=== PATIENT | female | born 1995 | race Caucasian/White ===

== ENCOUNTER 2023-10-29 17:16 | Emergency (ER) | payer MEDICAID, SELFPAY ==
[2023-10-29 17:22] VITALS: BP 137/91; PULSE 95; RESP 16; TEMP 37.1; O2SAT 99; BMI 38.7
--- NOTE | 2023-10-29 17:27 | ED.GENADUL1 ---
HPI - General Adult General Chief complaint: Headache Stated complaint: MIGRAINE Time Seen by Provider: 10/29/23 17:20 Source: patient Mode of arrival: walk-in History of Present Illness HPI narrative: 28-year-old female presents for a one-month history of a headache. It's the entire head and her neck that have been hurting. No trauma or fever. She has been on multiple prescription medications which have not helped. She's been taking gmuq-nen-uofsvhb medications at home as well. No localized weakness or numbness to her extremities. She has not had a CAT scan. She does not frequently get headaches. It is keeping her awake at night. Related Data Home Medications Medication Instructions Recorded Confirmed cyclobenzaprine 10 mg tablet 10 mg PO QPM PRN headache 10/29/23 10/29/23 Previous Rx's Medication Instructions Recorded rfhatmfhnh-tuvkyzcekwzlo-wdozpray 1 cap PO Q6H PRN pain 5 days #20 10/29/23 50 mg-300 mg-40 mg capsule caps (Fioricet) methocarbamol 500 mg tablet 500 mg PO Q8H PRN pain #20 tabs 10/29/23 Allergies Allergy/AdvReac Type Severity Reaction Status Date / Time sumatriptan Allergy Severe Verified 10/29/23 17:21 Review of Systems ROS Narrative A ten point review of systems is negative except as noted above. Exam Narrative Exam Narrative: Nurses note and vital signs reviewed and patient is not hypoxic. General: The patient appears well and in no apparent distress. Patient is resting comfortably on cart. Skin: Warm, dry, no pallor noted. There is no rash noted. Head: Normocephalic, atraumatic, neck supple, no nuchal rigidity Eye: Normal conjunctiva, no drainage, EOMI. Ears, Nose, Mouth, and Throat: oral mucosa is moist. Nares patent. Cardiovascular: Regular Rate and Rhythm Respiratory: Patient is in no distress, no accessory muscle use, lungs are clear to auscultation, no wheezing, rales or rhonchi Back: non-tender GI: soft and nontender Musculoskeletal: The patient has no evidence of calf tenderness, no pitting edema, symmetrical pulses noted bilaterally Neurological: A&O x4, normal speech; upper and lower extremity strength five out five and symmetric Psychiatric: Cooperative Constitutional Vital Signs, click to edit/add: Last Vital Signs Temp 98.8 F 10/29/23 17:22 Pulse 95 H 10/29/23 17:22 Resp 16 10/29/23 17:22 BP 137/91 10/29/23 17:22 Pulse Ox 99 10/29/23 17:22 O2 Del Method Room Air 10/29/23 17:22 Course Vital Signs Vital signs: Vital Signs Temperature 98.8 F 10/29/23 17:22 Pulse Rate 95 H 10/29/23 17:22 Respiratory Rate 16 10/29/23 17:22 Blood Pressure 137/91 10/29/23 17:22 Pulse Oximetry 99 10/29/23 17:22 Oxygen Delivery Method Room Air 10/29/23 17:22 Temperature 98.8 F 10/29/23 17:22 Pulse Rate 95 H 10/29/23 17:22 Respiratory Rate 16 10/29/23 17:22 Blood Pressure 137/91 10/29/23 17:22 Pulse Oximetry 99 10/29/23 17:22 Oxygen Delivery Method Room Air 10/29/23 17:22 Medical Decision Making MDM Narrative Medical decision making narrative: her workup including CT brain and C-spine do not show any acute findings. The mucosal changes in the sphenoid sinus appear to be chronic. She'll be treated symptomatically and is being scheduled to see a neurologist. Treatment diagnosis and follow-up were discussed with the patient. I've no clinical suspicion of meningitis. Differential Diagnosis Differential Diagnosis: nonspecific headache, intracranial hemorrhage, tension headache Lab Data Lab results reviewed: Yes I reviewed the patient's lab results Labs: Lab Results 10/29/23 Range/Units 17:55 WBC 7.5 (4.0-11.0) 10^3/uL RBC 4.54 (4.20-5.40) 10^6/uL Hgb 13.5 (12.0-16.0) g/dL Hct 39.8 (36.0-48.0) % MCV 87.7 (81.0-99.0) fL MCH 29.7 (26.7-34.0) pg MCHC 33.9 (29.9-35.2) g/dL RDW 12.0 (11.0-15.0) % Plt Count 286 (150-450) 10^3/uL MPV 9.8 (9.5-13.5) fL Neut % (Auto) 54.2 (43.0-75.0) % Lymph % (Auto) 31.0 (20.5-60.0) % [place] % (Auto) 12.8 H (1.7-12.0) % Eos % (Auto) 1.2 (0.9-7.0) % Baso % (Auto) 0.7 (0.2-2.0) % Neut # (Auto) 4.1 (1.4-6.5) 10^3/uL Lymph # (Auto) 2.3 (1.2-3.8) 10^3/uL [place] # (Auto) 1.0 H (0.3-0.8) 10^3/uL Eos # (Auto) 0.1 (0.0-0.7) 10^3/uL Baso # (Auto) 0.1 (0.0-0.1) 10^3/uL Abs Immat Gran (auto) 0.01 (0.00-0.03) 10^3/uL Imm/Tot Granulo (auto) 0.1 (0.0-0.5) % Sodium 137 (136-145) mmol/L Potassium 4.2 (3.5-5.1) mmol/L Chloride 102 (98-107) mmol/L Carbon Dioxide 28.2 (21.0-32.0) mmol/L Anion Gap 11.0 BUN 13.0 (7.0-18.0) mg/dL Creatinine 0.80 (0.55-1.02) mg/dL Est GFR ( Amer) >60 (>=60) Est GFR (Non-Af Amer) >60 (>=60) BUN/Creatinine Ratio 16.2 Glucose 95 (74-106) mg/dL Calcium 9.6 (8.5-10.1) mg/dL Serum HCG, Qual Negative (NEGATIVE) Imaging Data CT scan - head: Radiologist's impression: ITS Impressions Cervical Spine CT 10/29/23 18:07 IMPRESSION: No acute findings of the cervical spine. Mildly enlarged cervical lymph nodes, most often reactive. Clinical follow-up recommended. Electronically authenticated by: FILIBERTO MELENDEZ Date: 10/29/2023 18:[address] 10/29/23 18:07 IMPRESSION: There is no evidence of an intracranial hemorrhage, mass lesion or apparent acute infarct. A cluster of very faint punctate calcifications are seen in the basal ganglia, of questionable clinical significance. Mild chronic mucosal changes are seen in the sphenoid sinus on the right, and the paranasal sinuses are otherwise clear as visualized. The mastoid sinuses are clear. There is no apparent acute skull fracture. Comparison with a previous study would be helpful in determining the chronicity of these findings. Electronically authenticated by: DEBORAH DE LA TORRE Date: 10/29/2023 18:24 Discharge Plan Discharge Chief Complaint: Headache Clinical Impression: Headache Patient Disposition: Home, Self-Care Time of Disposition Decision: 18:44 Condition: Good Mode of Transportation: Private Vehicle Prescriptions / Home Meds: New methocarbamol 500 mg tablet 500 mg PO Q8H PRN (Reason: pain) Qty: 20 0RF dpnawjodko-dhelfxkjyxilu-ymha [Fioricet] 50-300-40 mg capsule 1 cap PO Q6H PRN (Reason: pain) 5 Days Qty: 20 0RF No Action cyclobenzaprine 10 mg tablet 10 mg PO QPM PRN (Reason: headache) Instructions: Acute Headache (ED) Stand Alone Forms: Portal Instructions Referrals: Physician,Non-Staff, MD [Primary Care Provider] - 1 week
[2023-10-29 18:03] LABS: Basophils Absolute Auto 0.1 10^3/uL (0.0-0.1); Basophils Percent Auto 0.7 % (0.2-2.0); Eosinophils Absolute Auto 0.1 10^3/uL (0.0-0.7); Eosinophils Percent Auto 1.2 % (0.9-7.0); Hematocrit 39.8 % (36.0-48.0); Hemoglobin 13.5 g/dL (12.0-16.0); Immature Granulocytes Abs Auto 0.01 10^3/uL (0.00-0.03); Immature Granulocytes Pct Auto 0.1 % (0.0-0.5); Lymphocytes Absolute Auto 2.3 10^3/uL (1.2-3.8); Mean Corpuscular HGB Conc 33.9 g/dL (29.9-35.2); Mean Corpuscular Hemoglobin 29.7 pg (26.7-34.0); Mean Corpuscular Volume 87.7 fL (81.0-99.0); Mean Platelet Volume 9.8 fL (9.5-13.5); Monocytes Percent Auto 12.8 % (1.7-12.0); Neutrophils Absolute Auto 4.1 10^3/uL (1.4-6.5); Neutrophils Percent Auto 54.2 % (43.0-75.0); Platelet Count 286 10^3/uL (150-450); Red Blood Count 4.54 10^6/uL (4.20-5.40); White Blood Count 7.5 10^3/uL (4.0-11.0)
--- NOTE | 2023-10-29 18:07 | CT_ITS ---
[place] [id number] Patient Name: JAMAAL LIRA MRN: [id number] date: 1995 Sex: F Assigned Patient Location: ER Current Patient Location: [facility] Accession/Order Number: [id number] Exam Date: 10/29/2023 18:02 Report Date: 10/29/2023 18:38 At the request of: SANDRITA ANDRADE Procedure: CT cervical spine wo con EXAM: CT cervical spine wo con HISTORY: atraumatic pain COMPARISON: None. TECHNIQUE: CT cervical spine without contrast. Multiplanar reformats obtained. The current study utilizes one or more of the following dose-reduction techniques: automated exposure control, iterative reconstruction, and/or manual adjustment of tube current and voltage for size. FINDINGS: No acute fracture or traumatic malalignment. Spinal canal grossly patent. No prevertebral edema. No significant degenerative changes. Neural foramen grossly patent. Mildly enlarged left greater than right cervical lymph nodes. CT/CT cervical spine wo con IMPRESSION: No acute findings of the cervical spine. Mildly enlarged cervical lymph nodes, most often reactive. Clinical follow-up recommended. Electronically authenticated by: FILIBERTO MELENDEZ Date: 10/29/2023 18:38
--- NOTE | 2023-10-29 18:07 | CT_ITS ---
The [address] [address] Patient Name: JAMAAL LIRA MRN: [id number] date: 1995 Sex: F Assigned Patient Location: ER Current Patient Location: ER Accession/Order Number: [id number] Exam Date: 10/29/2023 18:02 Report Date: 10/29/2023 18:24 At the request of: SANDRITA ANDRADE Procedure: CT head/brain wo con EXAM: CT head/brain wo con HISTORY: MALIN and neck pain, recurrent for the past month. COMPARISON: None. TECHNIQUE: Multiple thin computed tomograms of the head were obtained, with sagittal and coronal reconstructions. FINDINGS: The ventricles are not enlarged, the lateral ventricles are relatively symmetric and the third ventricles in the midline. The sylvian fissures and cortical sulci are unremarkable. There is no evidence of an intracranial hemorrhage, mass lesion or apparent acute infarct. Very faint punctate calcifications are suggested in the basal ganglia bilaterally. The cerebellum and visualized brainstem are intact. Mucosal thickening is seen in the sphenoid sinuses eccentric to the right of the midline, and the paranasal sinuses are otherwise clear. The middle ears are aerated. The mastoid sinuses are clear. There is no apparent acute skull fracture. CT/CT head/brain wo con IMPRESSION: There is no evidence of an intracranial hemorrhage, mass lesion or apparent acute infarct. A cluster of very faint punctate calcifications are seen in the basal ganglia, of questionable clinical significance. Mild chronic mucosal changes are seen in the sphenoid sinus on the right, and the paranasal sinuses are otherwise clear as visualized. The mastoid sinuses are clear. There is no apparent acute skull fracture. Comparison with a previous study would be helpful in determining the chronicity of these findings. Electronically authenticated by: DEBORAH DE LA TORRE Date: 10/29/2023 18:24
[2023-10-29 18:11] LABS: BUN Creatinine Ratio 16.2; Calcium 9.6 mg/dL (8.5-10.1); Carbon Dioxide 28.2 mmol/L (21.0-32.0); Chloride 102 mmol/L (98-107); Estimated GFR (African America >60 (>=60); Estimated GFR (Non-African Ame >60 (>=60); Glucose 95 mg/dL (74-106); Potassium 4.2 mmol/L (3.5-5.1); Sodium 137 mmol/L (136-145)
[2023-10-29 18:17] LABS: HCG Qualitative NEGATIVE (NEGATIVE)
[2023-10-29] MEDS: KETOROLAC TROMETHAMINE 30 MG/ML VIAL IVP (18:29)
[2023-10-29] MEDS: METHYLPREDNISOLONE SOD SUCC PF 125 MG/2 ML VIAL IVP (18:29)
== END 2023-10-29 18:59 | disposition home or self-care (01) ==
PROVIDERS: Emergency Provider Emergency Medicine
DX: R51.9 Headache, unspecified (principal); Z79.899 Other long term (current) drug therapy
CPT/HCPCS: 36415; 70450; 72125; 80048; 84703; 85025; 96374; 96375; 99285; J1885; J2930

== ENCOUNTER 2023-11-25 18:02 | Emergency (ER) | payer MEDICAID, SELFPAY ==
[2023-11-25 18:06] VITALS: BP 157/89; PULSE 96; RESP 20; TEMP 36.8; O2SAT 100; BMI 38.1
--- OUTSIDE RECORDS SUMMARY | 2023-11-25 18:06 | XMS_ITS | CCD ---
Author Name Unknown Address [address] [place] [address] Organization [facility] Care Team Providers Care Hand Stitcher Name Role Phone CASH FERNANDEZ Unavailable Unavailable CASH FERNANDEZ Unavailable Unavailable JOHN NIELSON Unavailable Unavailable CASH FERNANDEZ Unavailable Unavailable Problems Problem Classification Problem Date Documented Da te Episodic/Chronic Menstrual disorders (4 sources) Excessive and frequent menstruation with irregular cycle; Translations: [EXCESS AND FREQ MEN W/IRREG CYCLE] Onset: 05-06-2017 Chronic Results Test Name Value Interpretation Reference Range Facil ity US PELVIS AND TRANSVAGon US PELVIS AND TRANSVAG [address] [place] [address] Patient: JAMAAL LIRA. Exam Date: 05/06/2017DOB: 1995 Gender:F : CASH FERNANDEZ . Admission #: [id number] : Order #: [id number] HERE TO VIEW EXAM RADIOLOGY REPORT PROCEDURE: ULTRASOUND PELVIS AND TRANSVAGINAL COMPARISON: None. INDICATIONS: Breakthrough bleeding on Nexplanon N92.1; acute bilateral pelvic pain TECHNIQUE: Transabdominal sonographic examination. Transvaginal sonographic examination.FINDINGS: UTERUS: Normal size and appearance. Uterus: 9.2 x 6.0 x 5.7 cm (165 cc)ENDOMETRIUM: Normal homogeneous appearance. Endometrial thickness: 8.2 mm RIGHT OVARY: Normal size and appearance. Multiple follicles less than 10 mm. Blood flow present within ovary on color Doppler. Right ovary: 4.3 x 3.1 x 2.0 cm (14 cc) LEFT OVARY: Normal size and appearance. Multiple follicles less than 10 mm. Blood flow is present within ovary on Color Doppler. Left ovary: 4.2 x 2.5 x 2.4 cm (13 cc) CUL-DE-SAC: Small amount of free fluid.BLADDER: Unremarkable.OTHER: None. CONCLUSION: 1. Normal appearing uterus and endometrium.2. Normal appearing ovaries, each containing multiple small follicles. Dictated by: John Nielson M.D. on 05/06/2017 at 13:07 Approved by: John Nielson M.D. on 05/06/2017 at 13:10 Normal [facility] Encounters Encounter Date Encounter Type Care Provider Facility Start: 05-06-2017 End: 05-07-2017 Ambulatory CASH FERNANDEZ Facility: Payers Date Payer Category Payer Unknown [id number] Summary Purpose Family History No Family History Records Found Advance Directives No Advanced Directives Records Found Additional Source Comments INFORMATION SOURCE (unrecogn ized section and content) DATE CREATED AUTHOR 04/14/[address] [facility] FOR RECORDS PERTAINING TO PATIENTS WHO ARE OR HAVE BEEN ENROLLED IN A CHEMICAL DEPENDENCY/SUBSTANCEABUSE PROGRAM, SOME INFORMATION MAY BE OMITTED. This clinical summary was aggregated from multiple sources. Caution should be exercised in using it in the provision of clinical care. This summary normalizes information from multiple sources, and as a consequence, information in this document may materially change the coding, format and clinical context of patient data. In addition, data may be omitted in some cases. CLINICAL DECISIONS SHOULD BE BASED ON THE PRIMARY CLINICAL RECORDS. [employer] provides no warranty or guarantee of the accuracy or completeness of information in this document.
[2023-11-25 18:37] LABS: Influenza Virus A Antigen Negative; Influenza Virus B Antigen Negative; Internal Control Within Normal Limits; SARS-CoV-2 Ag NEGATIVE (NEGATIVE); Strep A Antigen Screen Negative
--- NOTE | 2023-11-25 19:17 | XR_ITS ---
The [address] [address] Patient Name: JAMAAL LIRA MRN: [id number] date: 1995 Sex: F Assigned Patient Location: ER Current Patient Location: ER Accession/Order Number: [id number] Exam Date: 11/25/2023 19:25 Report Date: 11/25/2023 19:40 At the request of: RILEY MARKER Procedure: XR chest 2V EXAM: XR chest 2V TECHNIQUE: PA and lateral view of the chest HISTORY: SOB COMPARISON: None. FINDINGS: The heart and mediastinum are unremarkable. The lung sommer are clear of any acute infiltrate, effusion or mass. No acute bony abnormality. XR/XR chest 2V IMPRESSION: No acute pulmonary disease. Electronically authenticated by: SUKHDEEP BENÍTEZ Date: 11/25/2023 19:40
--- NOTE | 2023-11-25 19:17 | ED.URI1 ---
HPI - URI/Sore Throat General Chief Complaint: Upper Respiratory Infection Stated Complaint: FLU Time Seen by Provider: 11/25/23 19:09 Source: patient History of Present Illness HPI Narrative: 28-year-old female presents for evaluation of 2 days of chills, headaches, nausea and diarrhea. She has a cough with productive phlegm. She states she had cold symptoms last week and thought that the phlegm was related to that. She denies possibility of because she has an IUD. She denies any luis chest pain dizziness or syncope. She states when she was bending over at work she had to have her boss help her because she became so nauseated. She has no flank pain. She has been using orkw-ych-dpmgyht [place] without significant improvement. Related Data Home Medications Medication Instructions Recorded Confirmed cyclobenzaprine 10 mg tablet 10 mg PO QPM PRN headache 10/29/23 10/29/23 Previous Rx's Medication Instructions Recorded pipaqvhfuf-idcjoxyrorsmt-wmbrbepy 1 cap PO Q6H PRN pain 5 days #20 10/29/23 50 mg-300 mg-40 mg capsule caps (Fioricet) methocarbamol 500 mg tablet 500 mg PO Q8H PRN pain #20 tabs 10/29/23 Allergies Allergy/AdvReac Type Severity Reaction Status Date / Time sumatriptan Allergy Severe Verified 10/29/23 17:21 Review of Systems ROS Status of ROS 10 or more systems reviewed and unremarkable except as noted in history and below PFSH PFS Social History Smoking status: Never smoker Exam Narrative Exam Narrative: Nurses note and vital signs reviewed and patient is not hypoxic. Blood pressure was noted to be elevated at 157/89 General: The patient appears well and in no apparent distress. Patient is resting comfortably on cart. She is speaking in complete sentences Skin: Warm, dry, no pallor noted. There is no rash noted. Head: Normocephalic, atraumatic Eye: Normal conjunctiva, no drainage, EOMI. PERRL Ears, Nose, Mouth, and Throat: oral mucosa is moist. Nares patent. Mouth without vesicles. Cardiovascular: Regular Rate and Rhythm, No murmurs rubs or gallops appreciated Respiratory: Patient is in no distress, no accessory muscle use, lungs are clear to auscultation, no wheezing, rales or rhonchi Back: non-tender, no CVA tenderness bilaterally to percussion. GI: Normal bowel sounds, no tenderness to palpation, no masses appreciated. No rebound, guarding, or rigidity noted. Musculoskeletal: The patient has no evidence of calf tenderness, no pitting edema, symmetrical pulses noted bilaterally Neurological: A&O x4, normal speech Psychiatric: Cooperative Constitutional Vital Signs, click to edit/add: Last Vital Signs Temp 98.3 F 11/25/23 18:06 Pulse 96 H 11/25/23 18:06 Resp 20 11/25/23 18:06 BP 157/89 H 11/25/23 18:06 Pulse Ox 98 11/25/23 19:33 O2 Del Method Room Air 11/25/23 19:33 Course Vital Signs Vital signs: Vital Signs Temperature 98.3 F 11/25/23 18:06 Pulse Rate 96 H 11/25/23 18:06 Respiratory Rate 20 11/25/23 18:06 Blood Pressure 157/89 H 11/25/23 18:06 Pulse Oximetry 100 11/25/23 18:06 Oxygen Delivery Method Room Air 11/25/23 18:06 Temperature 98.3 F 11/25/23 18:06 Pulse Rate 96 H 11/25/23 18:06 Respiratory Rate 20 11/25/23 18:06 Blood Pressure 157/89 H 11/25/23 18:06 Pulse Oximetry 98 11/25/23 19:33 Oxygen Delivery Method Room Air 11/25/23 19:33 MDM - URI/Sore Throat MDM Narrative Medical decision making narrative: This 28-year-old female presents for evaluation of 2 days of cough with productive phlegm, nausea, diarrhea and intermittent abdominal cramps and chills. She is negative for COVID 19, influenza and strep. Her physical exam is benign. Her lungs are clear. Abdomen is soft. She is medicated emergency department with Tylenol and Zofran.X-ray of the chest was reviewed by radiology and is negative for acute findings. The symptoms are likely viral in nature.. She will be discharged home with prescription for Zofran and Bromfed-DM to use as needed for her cough and chest congestion as well as nausea. Lab Data Labs: Lab Results 11/25/23 Range/Units 18:08 Influenza Type A Ag Negative Influenza Type B Ag Negative SARS-CoV-2 Ag (CV2AG) Negative (NEGATIVE) Streptococcus Screen Negative Discharge Plan Discharge Chief Complaint: Upper Respiratory Infection Clinical Impression: Viral infection Patient Disposition: Home, Self-Care Time of Disposition Decision: 19:57 Condition: Good Prescriptions / Home Meds: No Action cyclobenzaprine 10 mg tablet 10 mg PO QPM PRN (Reason: headache) methocarbamol 500 mg tablet 500 mg PO Q8H PRN (Reason: pain) Qty: 20 0RF dpsrpgszdj-xlhwxyckuevdu-pqmn [Fioricet] 50-300-40 mg capsule 1 cap PO Q6H PRN (Reason: pain) 5 Days Qty: 20 0RF Instructions: Viral Syndrome (ED) Stand Alone Forms: Portal Instructions Referrals: Physician,Non-Staff, MD [Primary Care Provider] - 1 week
[2023-11-25 19:33] VITALS: O2SAT 98
[2023-11-25] MEDS: ACETAMINOPHEN 325 MG TABLET 650 MG PO (19:42)
[2023-11-25] MEDS: ONDANSETRON 4 MG RAPDIS TABLET SL (19:42)
== END 2023-11-25 20:19 | disposition home or self-care (01) ==
PROVIDERS: Emergency Medicine; Emergency Provider Emergency Medicine
DX: B34.9 Viral infection, unspecified (principal); Z97.5 Presence of (intrauterine) contraceptive device; Z20.822 Contact with and (suspected) exposure to COVID-19
CPT/HCPCS: 71046; 87070; 87804; 87811; 87880; 99285; Q0162

== ENCOUNTER 2023-12-17 14:02 | Outpatient (OUT) | payer MEDICAID, SELFPAY ==
[2023-12-17 14:37] LABS: Basophils Percent Auto 0.2 % (0.2-2.0); Calcium 9.3 mg/dL (8.5-10.1); Eosinophils Percent Auto 0.2 % (0.9-7.0); Estimated GFR (African America >60 (>=60); Estimated GFR (Non-African Ame >60 (>=60); Hematocrit 38.4 % (36.0-48.0); Hemoglobin 12.9 g/dL (12.0-16.0); Immature Granulocytes Abs Auto 0.03 10^3/uL (0.00-0.03); Immature Granulocytes Pct Auto 0.3 % (0.0-0.5); Lymphocytes Absolute Auto 1.2 10^3/uL (1.2-3.8); Lymphocytes Percent Auto 9.9 % (20.5-60.0); Magnesium 1.9 mg/dL (1.8-2.4); Mean Corpuscular HGB Conc 33.6 g/dL (29.9-35.2); Mean Corpuscular Hemoglobin 29.7 pg (26.7-34.0); Mean Corpuscular Volume 88.3 fL (81.0-99.0); Mean Platelet Volume 11.2 fL (9.5-13.5); Monocytes Absolute Auto 0.3 10^3/uL (0.3-0.8); Monocytes Percent Auto 2.3 % (1.7-12.0); Neutrophils Absolute Auto 10.1 10^3/uL (1.4-6.5); Neutrophils Percent Auto 87.1 % (43.0-75.0); Phosphorus 2.4 mg/dL (2.6-4.7); Platelet Count 251 10^3/uL (150-450); Red Blood Count 4.35 10^6/uL (4.20-5.40); Red Cell Distribution Width 12.3 % (11.0-15.0); White Blood Count 11.6 10^3/uL (4.0-11.0)
[2023-12-17 15:28] LABS: Percent Iron Saturation 25.7 %
[2023-12-25 13:11] LABS: Methylmalonic Acid, Serum 181 nmol/L (0-378)
== END 2023-12-17 14:03 | disposition home or self-care (01) ==
LOC: LAB 14:02
PROVIDERS: Visit Provider Psychiatry & Neurology Neurology
DX: G62.9 Polyneuropathy, unspecified (principal); R79.89 Other specified abnormal findings of blood chemistry; G60.9 Hereditary and idiopathic neuropathy, unspecified; Z11.3 Encounter for screening for infections with a predominantly sexual mode of transmission; I70.91 Generalized atherosclerosis; D51.3 Other dietary vitamin B12 deficiency anemia; M79.10 Myalgia, unspecified site; E78.5 Hyperlipidemia, unspecified
CPT/HCPCS: 36415; 82310; 82565; 82607; 82728; 82746; 83090; 83540; 83550; 83735; 83921; 84100; 84466; 84520; 85025

== ENCOUNTER 2024-01-04 12:47 | Outpatient (OUT) | payer MEDICAID, SELFPAY ==
--- OUTSIDE RECORDS SUMMARY | 2024-01-01 13:04 | XMS_ITS | CCD ---
Author Name Unknown Address [address] [place] [address] Organization [facility] Care Team Providers Care Shrimp Header Name Role Phone CASH FERNANDEZ Unavailable Unavailable CASH FERNANDEZ Unavailable Unavailable JOHN PATE Unavailable Unavailable CASH FERNANDEZ Unavailable Unavailable NANCY FLORIAN Attending Unavailable NANCY FLORIAN Attending Unavailable Problems Problem Classification Problem Date Documented Da te Episodic/Chronic Menstrual disorders (4 sources) Excessive and frequent menstruation with irregular cycle; Translations: [EXCESS AND FREQ MEN W/IRREG CYCLE] Onset: 05-06-2017 Chronic Results Test Name Value Interpretation Reference Range Facil ity US PELVIS AND TRANSVAGon US PELVIS AND TRANSVAG [address] [place] [address] Patient: JAMAAL LIRA. Exam Date: 05/06/2017DOB: 1995 Gender:F : CASH Levine FERNANDEZ . Admission #: [id number] : Order #: [id number] HERE TO VIEW EXAM RADIOLOGY REPORT PROCEDURE: [...] containing multiple small follicles. Dictated by: John Pate M.D. on 05/06/2017 at 13:07 Approved by: John Pate M.D. on 05/06/2017 at 13:10 Normal [facility] Encounters Encounter Date Encounter Type Care Provider Facility Start: 10-14-2023 End: 10-14-2023 ambulatory NANCY FLORIAN Not Available Start: 10-07-2023 End: 10-07-2023 ambulatory NANCY FLORIAN Not Available Start: 05-06-2017 End: 05-07-2017 Ambulatory CASH FERNANDEZ Facility:[facility] Payers Date Payer Category Payer Unknown [id number] 1995 Unknown [id number] 1960 Unknown [id number] Summary Purpose Family History No Family History Records FoundNo Family History Records Found Advance Directives No Advanced Directives Records FoundNo Advanced Directives Records Found Additional Source Comments INFORMATION SOURCE (unrecogn ized section and content) DATE CREATED AUTHOR 04/14/2018 [facility] DATE CREATED AUTHOR AUTHOR'S ORGANIZ ATION 10/16/2023 [facility] EPIC (unrecognized sect ion and content) No Status Records Found FOR RECORDS PERTAINING TO PATIENTS WHO ARE [...] BE BASED ON THE PRIMARY CLINICAL RECORDS. [facility] [employer] provides no warranty or guarantee of the accuracy or completeness of information in this document.
--- OUTSIDE RECORDS SUMMARY | 2024-01-04 13:04 | XMS_ITS | CCD ---
Author Name Unknown Address [address] [place] [address] Organization [facility] Care Team Providers Care Carpentry Supervisor Name Role Phone CASH FERNANDEZ Unavailable Unavailable CASH FERNANDEZ Unavailable Unavailable JOHN PATE Unavailable Unavailable CASH FERNANDEZ Unavailable Unavailable NANCY FLORIAN Attending Unavailable CHACHA SHANNON Attending Unavailable NANCY FLORIAN Attending Unavailable CHACHA SHANNON Attending Unavailable Problems Problem Classification Problem Date Documented Da te Episodic/Chronic Menstrual disorders (4 sources) Excessive and frequent menstruation with irregular cycle; Translations: [EXCESS AND FREQ MEN W/IRREG CYCLE] Onset: 05-06-2017 Chronic Results Test Name Value Interpretation Reference Range Facil ity US PELVIS AND TRANSVAGon US PELVIS AND TRANSVAG [address] [place] [address] Patient: JAMAAL LIRA. Exam Date: 05/06/2017DOB: 1995 Gender:F : CASH FERNANDEZ . Admission #: [id number] : Order #: [id number] HERE TO VIEW EXAM RADIOLOGY REPORT PROCEDURE: [...] Pate M.D. on 05/06/2017 at 13:10 Normal [facility] Encounters Encounter Date Encounter Type Care Provider Facility Start: 01-01-2024 End: 01-01-2024 ambulatory CHACHA D BEJ Not Available Start: 12-15-2023 End: 12-15-2023 ambulatory CHACHA D BEJ Not Available Start: 10-14-2023 End: 10-14-2023 ambulatory NANCY G ANIVAL Not Available Start: 10-07-2023 End: 10-07-2023 ambulatory NANCY G ANIVAL Not Available Start: 05-06-2017 End: 05-07-2017 Ambulatory CASH FERNANDEZ Facility: Payers Date Payer Category Payer Unknown [id number] 1995 Unknown [id number] 1995 Unknown [id number] 1995 Unknown [id number] 1960 Unknown [id number] Summary Purpose Family History No Family History Records FoundNo Family History Records Found Advance Directives No Advanced Directives Records FoundNo Advanced Directives Records Found Additional Source Comments INFORMATION SOURCE (unrecogn ized section and content) DATE CREATED AUTHOR 04/14/2018 [facility] pital DATE CREATED AUTHOR AUTHOR'S ORGANIZ ATION 01/02/2024 [facility] EPIC (unrecognized sect [...] BE BASED ON THE PRIMARY CLINICAL RECORDS. [facility]. provides no warranty or guarantee of the accuracy or completeness of information in this document.
[2024-01-04 13:45] LABS: Estimated Average Glucose 108 mg/dL; Glycohemoglobin A1C 5.4 % (4.5-6.2)
[2024-01-04 14:16] LABS: Thyroid Stimulating Hormone 2.069 uIU/mL (0.358-3.740)
[2024-01-04 15:14] LABS: Free T4 0.86 ng/dL (0.76-1.46)
[2024-01-05 05:15] LABS: Homocyst(e)ine 9.1 umol/L (0.0-14.5)
[2024-01-11 13:07] LABS: Methylmalonic Acid, Serum 129 nmol/L (0-378)
== END 2024-01-04 12:48 | disposition home or self-care (01) ==
LOC: LAB 12:47
PROVIDERS: Visit Provider Psychiatry & Neurology Neurology
DX: G62.9 Polyneuropathy, unspecified (principal); R79.89 Other specified abnormal findings of blood chemistry; G60.9 Hereditary and idiopathic neuropathy, unspecified; Z11.3 Encounter for screening for infections with a predominantly sexual mode of transmission; E53.1 Pyridoxine deficiency; I70.91 Generalized atherosclerosis; D51.3 Other dietary vitamin B12 deficiency anemia; M79.10 Myalgia, unspecified site; E78.5 Hyperlipidemia, unspecified
CPT/HCPCS: 36415; 82607; 82746; 83036; 83090; 83921; 84439; 84443